=== PATIENT | female | born 1990 | race American Indian/Alaskan Native ===

== ENCOUNTER 2022-06-11 09:39 | Emergency (ER) | payer MEDICAID, OTHER ==
[2022-06-11] MEDS ORDERED: diphenhydrAMINE 50 MG/ML SDV IVPUSH ONE (09:59)
[2022-06-11] MEDS ORDERED: Gentamicin 0.3% Ophth Soln 5 ML Bottle EYELF ONE (10:01)
[2022-06-11 10:04] VITALS: BP 124/73; PULSE 81
== END 2022-06-11 11:56 | disposition home or self-care (01) ==
LOC: DL.ED 09:39
DX: L03.213 Periorbital cellulitis (principal)
CPT/HCPCS: 36415; 85025; 86140; 87070; 87077; 87186; 96365; 96366; 96375; 99283; A9270; J1200; J3370; J7050

== ENCOUNTER 2024-06-08 11:45 | Emergency (ER) | payer MEDICAID ==
[2024-06-08 12:04] VITALS: BP 114/87; PULSE 68
== END 2024-06-08 12:32 | disposition home or self-care (01) ==
LOC: DL.ED 11:45
DX: M70.51 Other bursitis of knee, right knee (principal)
CPT/HCPCS: 99283